=== PATIENT | male | born 1990 ===

== ENCOUNTER 2019-08-15 17:40 | Emergency (ER) | payer BC ==
[2019-08-15 17:55] VITALS: BP 127/70
--- NOTE | 2019-08-15 17:57 | UC ---
Lower Extremity/Ankle HPI - HPI Summary HPI Summary: The patient is a 29-year-old male who injured his left ankle about 1 PM today. He states he slipped on ice. He can bear weight. He denies any prior history of left ankle or foot injury. - History of Current Complaint Chief Complaint: UCLowerExtremity Stated Complaint: ANKLE INJURY Time Seen by Provider: 08/15/19 17:46 Hx Obtained From: Patient Onset/Duration: Sudden Onset, Lasting Hours Severity Initially: Moderate Severity Currently: Moderate Pain Intensity: 6 Pain Scale Used: 0-10 Numeric Aggravating Factor(s): Standing, Ambulation Alleviating Factor(s): Rest Able to Bear Weight: Yes Feet (Multiple View): 1 - tender/no ecchymosis - Allergies/Home Medications Allergies/Adverse Reactions: Allergies Allergy/AdvReac Type Severity Reaction Status Date / Time No Known Allergies Allergy Verified 08/15/19 17:56 Home Medications: Home Medications NK [No Home Medications Reported] 08/15/19 [History Confirmed 08/15/19] PMH/Surg Hx/FS Hx/Imm Hx Previously Healthy: Yes - Surgical History Surgical History: Yes Surgery Procedure, Year, and Place: right hip 1997 - Family History Known Family History: Negative: Cardiac Disease, Hypertension, Diabetes - Social History Alcohol Use: Occasionally Substance Use Type: None Smoking Status (MU): Never Smoked Tobacco Review of Systems All Other Systems Reviewed And Are Negative: Yes Constitutional: Positive: Negative Skin: Positive: Negative Eyes: Positive: Negative ENT: Positive: Negative Respiratory: Positive: Negative Cardiovascular: Positive: Negative Gastrointestinal: Positive: Negative Genitourinary: Positive: Negative Motor: Positive: Negative Neurovascular: Positive: Negative Musculoskeletal: Positive: Arthralgia - left ankle Neurological: Positive: Negative Psychological: Positive: Negative Physical Exam Triage Information Reviewed: Yes Appearance: Well-Appearing, No Pain Distress, Well-Nourished Vital Signs: Initial Vital Signs Temp 97.7 F 08/15/19 17:48 Pulse 100 08/15/19 17:48 Resp 16 08/15/19 17:48 BP 127/70 08/15/19 17:48 Pulse Ox 100 08/15/19 17:48 Vital Signs Reviewed: Yes Eyes: Positive: Conjunctiva Clear ENT: Positive: Hearing grossly normal. Negative: Nasal congestion, Nasal drainage, Trismus, Muffled voice, Hoarse voice Dental: Positive: Other: - porr dentition Neck: Positive: Supple Respiratory: Positive: Lungs clear, Normal breath sounds, No respiratory distress, No accessory muscle use Cardiovascular: Positive: RRR, No Murmur Musculoskeletal: Positive: Other: - see image Neurological: Positive: Alert Psychological Exam: Normal Skin Exam: Normal Diagnostics - Radiology No standard instances Radiology Interpretation Completed By: ED Physician Summary of Radiographic Findings: no fx noted Lower Extremity Course/Dx - Differential Dx/Diagnosis Provider Diagnosis: Left ankle sprain Discharge ED - Sign-Out/Discharge Documenting (check all that apply): Patient Departure All imaging exams completed and their final reports reviewed: No - Discharge Plan Condition: Stable Disposition: HOME Patient Education Materials: Ankle Sprain (ED) Forms: *Work Release Referrals: Suzy Coles MD [Medical Doctor] - 2 Weeks (if not better) Additional Instructions: rest elevate ice tylenol use crutches with light touch down official XR reading pending - Billing Disposition and Condition Condition: STABLE Disposition: Home
[2019-08-15] MEDS ORDERED: Acetaminophen TAB* 325 MG PO ONE (18:02)
--- NOTE | 2019-08-16 08:55 | UC ---
- Progress Note Progress Note: Final x-ray report reviewed today Left ankle:NO ACUTE OSSEOUS INJURY. IF SYMPTOMS PERSIST, RECOMMEND REPEAT IMAGING. R0 Wet read correct, no change in plan Course/Dx - Diagnoses Provider Diagnoses: Left ankle sprain Discharge ED - Sign-Out/Discharge Documenting (check all that apply): Post-Discharge Follow Up All imaging exams completed and their final reports reviewed: Yes - Discharge Plan Condition: Stable Disposition: HOME Patient Education Materials: Ankle Sprain (ED) Forms: *Work Release Referrals: Suzy Coles MD [Medical Doctor] - 2 Weeks (if not better) Additional Instructions: rest elevate ice tylenol use crutches with light touch down official XR reading pending - Billing Disposition and Condition Condition: STABLE Disposition: Home
== END 2019-08-15 18:41 | disposition home or self-care (01) ==
LOC: UCEAST 17:40
DX: S93.402A Sprain of unspecified ligament of left ankle, initial encounter (principal); W00.0XXA Fall on same level due to ice and snow, initial encounter; Y92.9 Unspecified place or not applicable
CPT/HCPCS: 99203; A9270-GY; G0463